=== PATIENT | female | born 1955 | race Caucasian/White ===

== ENCOUNTER 2018-07-31 09:26 | Emergency (ER) | payer MEDICARE, OTHER ==
[~2018-07-31] VITALS: Ht 162.6 cm; Wt 113.6 kg
[~2018-07-31 09:26] MED LIST: ASPI-1 PO; CALC-793 PO; CALCIUM PO; DICL-194 PO; DULO60CA64 PO; GABA800T11 PO; IRON PO; LACT1CAP65 PO; METH-360 PO; OMEP-50 PO; PRAM0.258 PO; PRAV80TA3 PO; TRAM50TA2 PO; WALKERFR
[2018-07-31 09:40] VITALS: BP 143/66
[2018-07-31] MEDS ORDERED: GABA-532 PO (10:18)
== END 2018-07-31 10:45 | disposition home or self-care (01) ==
LOC: ER 09:26
DX: G25.81 Restless legs syndrome (principal); G89.29 Other chronic pain; Z98.890 Other specified postprocedural states; Z98.51 Tubal ligation status; Z88.2 Allergy status to sulfonamides; Z79.899 Other long term (current) drug therapy
CPT/HCPCS: 99283

== ENCOUNTER 2018-11-22 06:54 | Day surgery (SDC) | payer MEDICARE, OTHER ==
[~2018-11-22] VITALS: Ht 162.6 cm; Wt 110.7 kg
[2018-11-22] VITALS (9 sets, daily range): BP systolic 110–159; BP diastolic 27–86
[~2018-11-22 06:54] MED LIST changes: -DULO60CA64 PO; +DULO60CA65 PO; +GABA-532 PO
[2018-11-22] MEDS ORDERED: acetaminophen 325mg tablet PO ONE (07:20)
[2018-11-22] MEDS ORDERED: diphenhydrAMINE 25mg capsule PO ONE (07:20)
[2018-11-22] MEDS ORDERED: dexamethasone sod phosphate 4mg/ml inj. IV ONE (07:20)
[2018-11-22] MEDS ORDERED: ROSU5TAB PO (08:54)
[2018-11-22] MEDS ORDERED: DICL100G15 TOP (09:00)
[2018-11-22] MEDS ORDERED: PRAM0.252 PO (09:00)
[2018-11-22] MEDS ORDERED: METO-395 PO (09:00)
[2018-11-22] MEDS ORDERED: CYAN-51 PO (09:03)
[2018-11-22] MEDS ORDERED: IRON150C5 PO (09:03)
[2018-11-22] MEDS ORDERED: MULT-955 PO (09:03)
== END 2018-11-22 13:20 | disposition home or self-care (01) ==
LOC: SSTAY O 06:54
PROVIDERS: ATTEND Internal Medicine Hematology & Oncology
DX: D50.0 Iron deficiency anemia secondary to blood loss (chronic) (principal); N18.2 Chronic kidney disease, stage 2 (mild); Z79.899 Other long term (current) drug therapy
CPT/HCPCS: 36415; 36430; 86644; 86885; 86900; 86901; 86920; 86945; J1100; P9016; Q0163

== ENCOUNTER 2019-08-23 06:29 | Day surgery (SDC) | payer MEDICARE, OTHER ==
[2019-08-16 15:44] LABS: BASOPHILS % (AUTO) 0.7 % (0-1); EOSINOPHILS # (AUTO) 0.2 X10'3 (0-0.9); EOSINOPHILS % (AUTO) 2.9 % (0-6); LYMPHOCYTES # (AUTO) 1.1 X10'3 (1.1-4.8); MEAN CORPUSCULAR HEMOGLOBIN 25.7 PG (27.0-31.0); MEAN CORPUSCULAR VOLUME 80.4 FL (78-98); MEAN PLATELET VOLUME 8.4 FL (7.4-10.4); MONOCYTES # (AUTO) 0.4 X10'3 (0-0.9); MONOCYTES % (AUTO) 6.6 % (2-12); NEUTROPHILS # (AUTO) 4.5 X10'3 (1.8-7.7); NEUTROPHILS % (AUTO) 72.8 % (42-75); PRE OP HEMATOCRIT 40.3 % (35.0-45.0); PRE OP HEMOGLOBIN 12.9 g/dL (12.0-16.0); PRE OP PLATELET COUNT 196 X10'3 (140-440); RED BLOOD COUNT 5.01 X10'6 (4.20-5.60); RED CELL DISTRIBUTION WIDTH 16.5 % (11.5-14.5)
[2019-08-16 15:45] LABS: CLARITY,URINE CLOUDY (Clear); COLOR,URINE YELLOW (Yellow); GLUCOSE, URINE NEGATIVE (Neg); KETONES,URINE TRACE mg/dl (Neg); LEUKOCYTE ESTERASE ,URINE NEGATIVE (Neg); NITRITES, URINE NEGATIVE (Neg); OCCULT BLOOD,URINE SMALL (Neg); PROTEIN,URINE 100 mg/dl (Neg); UROBILINOGEN,URINE 0.2 E.U/dL (0.2-1.0)
[2019-08-16 15:50] LABS: UA COLLECTION TYPE CLN CATCH MIDSTREAM
[2019-08-16 15:52] LABS: ALBUMIN 3.5 G/DL (3.4-5.0); ALKALINE PHOSPHATASE 86 IU/L (46-116); BLOOD UREA NITROGEN 14 MG/DL (7-18); BUN/CREATININE RATIO 16.9 (6.6-38.0); CALCIUM 9.1 MG/DL (8.5-10.1); CHLORIDE 111 MMOL/L (99-107); CREATININE 0.83 MG/DL (0.40-0.90); PRE OP ANION GAP 10 (8-16); PRE OP AST 79 U/L (10-37); PRE OP BILIRUB, TOTAL 0.3 MG/DL (0.0-1.0); PRE OP GLUCOSE 173 MG/DL (70-104); PRE OP POTASSIUM 3.9 MMOL/L (3.4-5.1); PRE OP SODIUM 145 MMOL/L (135-145); TOTAL CARBON DIOXIDE 24.3 MMOL/L (24-32); eGFR 69 ML/MIN
[2019-08-16 15:54] LABS: AMORPHOUS URATES 3+
[2019-08-16 15:56] LABS: PRE OP ALT 81 U/L (30-65)
[2019-08-16 15:59] LABS: BACTERIA,URINE NONE SEEN /HPF (Neg); RBC,URINE 0-2 /HPF (0-2); SQUAMOUS EPITHELIAL CELL,UR FEW /LPF (FEW); WBC,URINE 0-4 /HPF (0-4)
[~2019-08-23] VITALS: Ht 162.6 cm; Wt 106.6 kg
[2019-08-23] VITALS (12 sets, daily range): BP systolic 115–155; BP diastolic 49–117
[~2019-08-23 06:29] MED LIST changes: -ASPI-1 PO; -CALC-793 PO; -CALCIUM PO; -DICL-194 PO; +DICLOFENAC GEL TOP; -DULO60CA65 PO; -GABA-532 PO; -IRON PO; +MELO-100 PO; -METH-360 PO; +METO-395 PO; +PRAM0.252 PO; -PRAM0.258 PO; -PRAV80TA3 PO; +ROSU5TAB PO; -WALKERFR; +ceFOXitin 2GM-NS 100mL ADDvant 100 ML IV ONE; +ceFOXitin sod/dextrose 2g/50ml 50 ML IV ONE; +famotidine 20mg tablet PO ONE; +ringers solution, lacted 1,000 ML IV SCH
[2019-08-23] MEDS ORDERED: BUPIVAcaine/PF 2.5 mg/ml (0.25%) 30ml vial ONE (07:21)
[2019-08-23] MEDS ORDERED: ceFAZolin 1000mg inj ONE (07:22)
[2019-08-23] MEDS ORDERED: ringers solution, lacted 1,000 ML IV SCH (08:23)
[2019-08-23] MEDS ORDERED: hydrALAZINE 20mg/ml inj. IV PRN (08:25)
[2019-08-23] MEDS ORDERED: morphine 2 MG/ML inj. syringe IV PRN (08:25)
[2019-08-23] MEDS ORDERED: ondansetron/PF 4mg/2ml inj IV PRN (08:25)
[2019-08-23] MEDS ORDERED: labetalol 20mg/4ml (5mg/ml) syringe IV PRN (08:25)
[2019-08-23] MEDS ORDERED: fentaNYL/PF 50MCG/1 ML 2ML syringe IV PRN ×2 (08:25)
[2019-08-23] MEDS ORDERED: sevoflurane 250ml liquid IH ONE (08:30)
[2019-08-23] MEDS ORDERED: fentaNYL/PF 50MCG/1 ML 2ML syringe ONE (08:31)
[2019-08-23] MEDS ORDERED: midazolam 2 mg/2 ml injection ONE (08:31)
[2019-08-23] MEDS ORDERED: rocuronium 10mg/ml inj IV ONE (08:35)
[2019-08-23] MEDS ORDERED: propofol inj 20 ML IV ONE (08:35)
[2019-08-23] MEDS ORDERED: neostigmine methylsulfate 1 MG/ML 10ml vial ONE (08:35)
[2019-08-23] MEDS ORDERED: glycopyrrolate 0.2mg/ml inj ONE (08:35)
[2019-08-23] MEDS ORDERED: dexamethasone sod phosphate 4mg/ml inj. ONE (08:35)
[2019-08-23] MEDS ORDERED: LIDOcaine 2% (20mg/ml) 5ml vial ONE (08:35)
[2019-08-23] MEDS ORDERED: ondansetron/PF 4mg/2ml inj ONE (08:35)
[2019-08-23] MEDS ORDERED: labetalol 20mg/4ml (5mg/ml) syringe IV ONE (09:37)
--- NOTE | 2019-08-23 09:47 | NUR ---
Received from OR via [facility], accompanied by Anesthesiologist DR RODRIGUEZ and report given by Anesthesiologist. PT DROWSY, DENIES PAIN, ABDOMEN W/4 LAP SITES W/BANDAIDS CDI. Addendum: 08/23/19 at 1008 by Kavitha Price RN Amended: Links added.
[2019-08-23] MEDS: morphine 4 MG/ML inj SYRINge IV PRN ×2 (10:21→10:36)
[2019-08-23] MEDS ORDERED: HYDROcodone/acetaminophen 10/325mg tab PO ONE (11:00)
--- NOTE | 2019-08-23 11:57 | NUR ---
PT ABLE TO AMBULATE, PAIN PILL GIVEN FOR [facility] AND PRESCRIPTION TO BE FILLED, D/C INSTRUCTIONS GIVEN AND GONE OVER W/PT WHO VERBALIZED UNDERSTANDING, PT D/CD TO HOME VIA W/C TO PRIVATE VEHICLE W/O INCIDENT. Addendum: 08/23/19 at 1204 by Kavitha Price RN Amended: Links added.
== END 2019-08-23 11:57 | disposition home or self-care (01) ==
LOC: PAS 06:29
PROVIDERS: ATTEND Surgery
DX: K80.10 Calculus of gallbladder with chronic cholecystitis without obstruction (principal); E78.5 Hyperlipidemia, unspecified; D64.9 Anemia, unspecified; G47.30 Sleep apnea, unspecified; G25.81 Restless legs syndrome; E66.9 Obesity, unspecified; Z68.41 Body mass index [BMI] 40.0-44.9, adult; M19.90 Unspecified osteoarthritis, unspecified site; Z88.2 Allergy status to sulfonamides; Z88.8 Allergy status to other drugs, medicaments and biological substances; Z98.890 Other specified postprocedural states; Z79.899 Other long term (current) drug therapy; Z72.89 Other problems related to lifestyle; Z11.59 Encounter for screening for other viral diseases; Z87.891 Personal history of nicotine dependence; Z83.6 Family history of other diseases of the respiratory system
CPT/HCPCS: 36415; 47562; 80053; 81001; 82948; 83036; 85025; J0690; J0694; J1100; J2001; J2250; J2270; J2405; J2704; J2710; J3010; J3490; J7120; U0003; 88304; A4215; A4618; A7000

== ENCOUNTER 2019-11-24 16:06 | Emergency (ER) | payer MEDICARE, OTHER ==
[~2019-11-24] VITALS: Ht 162.6 cm; Wt 106.8 kg
[~2019-11-24 16:06] MED LIST changes: -ceFOXitin 2GM-NS 100mL ADDvant 100 ML IV ONE; -ceFOXitin sod/dextrose 2g/50ml 50 ML IV ONE; -famotidine 20mg tablet PO ONE; -ringers solution, lacted 1,000 ML IV SCH
[2019-11-24 16:08] VITALS: BP 134/64
== END 2019-11-24 17:39 | disposition home or self-care (01) ==
LOC: ER 16:07
DX: M70.22 Olecranon bursitis, left elbow (principal); G89.29 Other chronic pain; Z98.51 Tubal ligation status; Z98.890 Other specified postprocedural states; Z88.5 Allergy status to narcotic agent; Z79.899 Other long term (current) drug therapy
CPT/HCPCS: 99281

== ENCOUNTER 2019-11-27 21:51 | Emergency (ER) | payer MEDICARE, OTHER ==
[~2019-11-27] VITALS: Ht 162.6 cm; Wt 106.4 kg
[2019-11-27] MEDS ORDERED: ondansetron 4mg rapidly disintigrating tab PO ONE (22:40)
--- NOTE | 2019-11-27 22:50 | NUR ---
Patient to xray.
[2019-11-27] MEDS ORDERED: oxymetazoline 15 ML nasal spray NS ONE (22:55)
[2019-11-27] MEDS ORDERED: ONDA4TAB6 PO (23:11)
[2019-11-27 23:20] VITALS: BP 137/62
== END 2019-11-27 23:22 | disposition home or self-care (01) ==
LOC: ER 21:51
DX: R19.7 Diarrhea, unspecified (principal); R11.2 Nausea with vomiting, unspecified; R06.02 Shortness of breath; G89.29 Other chronic pain; Z98.51 Tubal ligation status; Z98.890 Other specified postprocedural states; Z88.2 Allergy status to sulfonamides; Z88.5 Allergy status to narcotic agent; Z79.899 Other long term (current) drug therapy
CPT/HCPCS: 74018; 99283

== ENCOUNTER 2019-12-22 00:07 | Emergency (ER) | payer MEDICARE, OTHER ==
[~2019-12-22] VITALS: Ht 162.6 cm; Wt 103.6 kg
[~2019-12-22 00:07] MED LIST changes: +ONDA4TAB6 PO
[2019-12-22] MEDS ORDERED: ondansetron/PF 4mg/2ml inj IV ONE (00:35)
[2019-12-22] MEDS ORDERED: normal saline 1000ml 1,000 ML IV ONE (00:35)
[2019-12-22 00:50] LABS: BASOPHILS % (AUTO) 0.5 % (0-1); EOSINOPHILS # (AUTO) 0.2 X10'3 (0-0.9); EOSINOPHILS % (AUTO) 3.9 % (0-6); HEMATOCRIT 42.8 % (35.0-45.0); HEMOGLOBIN 14.1 g/dl (12.0-16.0); LYMPHOCYTES # (AUTO) 1.3 X10'3 (1.1-4.8); LYMPHOCYTES % (AUTO) 21.5 % (21-51); MEAN CORPUSCULAR HEMOGLOBIN 26.2 PG (27.0-31.0); MEAN CORPUSCULAR HGB CONC 32.9 g/dL (33.0-36.5); MEAN CORPUSCULAR VOLUME 79.7 FL (78-98); MEAN PLATELET VOLUME 8.4 FL (7.4-10.4); MONOCYTES # (AUTO) 0.3 X10'3 (0-0.9); MONOCYTES % (AUTO) 5.9 % (2-12); NEUTROPHILS % (AUTO) 68.2 % (42-75); PLATELET COUNT 180 X10'3 (140-440); RED BLOOD COUNT 5.36 X10'6 (4.20-5.60); RED CELL DISTRIBUTION WIDTH 17.1 % (11.5-14.5); WHITE BLOOD COUNT 5.8 X10'3 (4.5-11.0)
[2019-12-22 01:03] LABS: ALANINE AMINOTRANSFERASE 58 U/L (12-78); ALBUMIN 4.1 G/DL (3.4-5.0); ALBUMIN/GLOBULIN RATIO 1.1 (1.1-1.5); ALKALINE PHOSPHATASE 85 IU/L (46-116); ANION GAP 6 (8-16); ASPARTATE AMINO TRANSFERASE 44 U/L (10-37); BILIRUBIN,TOTAL 0.5 MG/DL (0.1-1.0); BLOOD UREA NITROGEN 13 MG/DL (7-18); BUN/CREATININE RATIO 17.3 (6.6-38.0); CALCIUM 9.2 MG/DL (8.5-10.1); CHLORIDE 108 MMOL/L (99-107); CREATININE 0.75 MG/DL (0.40-0.90); GLUCOSE 109 MG/DL (70-104); LIPASE 166 U/L (73-393); POTASSIUM 3.5 MMOL/L (3.5-5.1); SODIUM 142 MMOL/L (135-145); TOTAL CARBON DIOXIDE 27.8 MMOL/L (24-32); TOTAL PROTEIN 7.8 G/DL (6.4-8.2); eGFR 77 ML/MIN
[2019-12-22 01:56] LABS: CLARITY,URINE SLIGHTLY CLOUDY (Clear); COLOR,URINE YELLOW (Yellow); GLUCOSE, URINE NEGATIVE (Neg); KETONES,URINE NEGATIVE (Neg); LEUKOCYTE ESTERASE ,URINE NEGATIVE (Neg); NITRITES, URINE NEGATIVE (Neg); OCCULT BLOOD,URINE TRACE-LYSED (Neg); PROTEIN,URINE 30 mg/dl (Neg); UROBILINOGEN,URINE 0.2 E.U/dL (0.2-1.0)
[2019-12-22 02:10] LABS: UA COLLECTION TYPE CLN CATCH MIDSTREAM
[2019-12-22 02:11] LABS: BACTERIA,URINE 2+ /HPF (Neg); RBC,URINE 0-2 /HPF (0-2); SQUAMOUS EPITHELIAL CELL,UR MANY /LPF (FEW); WBC,URINE 0-4 /HPF (0-4)
[2019-12-22 02:34] VITALS: BP 145/95
== END 2019-12-22 02:29 | disposition home or self-care (01) ==
LOC: ER 00:08
DX: R19.7 Diarrhea, unspecified (principal); R11.10 Vomiting, unspecified; R53.1 Weakness; G89.29 Other chronic pain; Z98.51 Tubal ligation status; Z90.49 Acquired absence of other specified parts of digestive tract; Z88.8 Allergy status to other drugs, medicaments and biological substances; Z79.899 Other long term (current) drug therapy
CPT/HCPCS: 36415; 80053; 81001; 83690; 85025; 96361; 96374; 99283; J2405; J7030

== ENCOUNTER 2022-01-05 23:18 | Emergency (ER) | payer MEDICARE, OTHER ==
[~2022-01-05] VITALS: Ht 162.6 cm; Wt 98.2 kg
[~2022-01-05 23:18] MED LIST changes: -OMEP-50 PO; +OMEP20CA16 PO
[2022-01-06 00:24] LABS: BASOPHILS % (AUTO) 0.5 % (0-1); EOSINOPHILS # (AUTO) 0.2 X10'3 (0-0.9); EOSINOPHILS % (AUTO) 2.9 % (0-6); HEMATOCRIT 41.1 % (35.0-45.0); HEMOGLOBIN 13.9 g/dl (12.0-16.0); LYMPHOCYTES # (AUTO) 1.3 X10'3 (1.1-4.8); LYMPHOCYTES % (AUTO) 20.7 % (21-51); MEAN CORPUSCULAR HEMOGLOBIN 27.8 PG (27.0-31.0); MEAN CORPUSCULAR HGB CONC 33.9 g/dL (33.0-36.5); MEAN CORPUSCULAR VOLUME 82.1 FL (78-98); MEAN PLATELET VOLUME 7.6 FL (7.4-10.4); MONOCYTES # (AUTO) 0.4 X10'3 (0-0.9); MONOCYTES % (AUTO) 6.8 % (2-12); NEUTROPHILS # (AUTO) 4.2 X10'3 (1.8-7.7); NEUTROPHILS % (AUTO) 69.1 % (42-75); PLATELET COUNT 220 X10'3 (140-440); RED BLOOD COUNT 5.01 X10'6 (4.20-5.60); RED CELL DISTRIBUTION WIDTH 14.8 % (11.5-14.5); WHITE BLOOD COUNT 6.1 X10'3 (4.5-11.0)
[2022-01-06 00:27] LABS: ALANINE AMINOTRANSFERASE 54 U/L (12-78); ALBUMIN 3.6 G/DL (3.4-5.0); ALKALINE PHOSPHATASE 81 IU/L (46-116); ANION GAP 9 (8-16); ASPARTATE AMINO TRANSFERASE 33 U/L (10-37); BILIRUBIN,TOTAL 0.3 MG/DL (0.1-1.0); BLOOD UREA NITROGEN 14 MG/DL (7-18); BUN/CREATININE RATIO 19.2 (6.6-38.0); CALCIUM 9.3 MG/DL (8.5-10.1); CHLORIDE 106 MMOL/L (99-107); CREATININE 0.73 MG/DL (0.40-0.90); GLUCOSE 119 MG/DL (70-104); POTASSIUM 3.7 MMOL/L (3.5-5.1); SODIUM 141 MMOL/L (135-145); TOTAL CARBON DIOXIDE 26.2 MMOL/L (24-32); TOTAL PROTEIN 7.1 G/DL (6.4-8.2); eGFR 79 ML/MIN
[2022-01-06 04:09] VITALS: BP 142/94
[2022-01-06] MEDS ORDERED: normal saline 1000ML IV soln IVB ONE (04:50)
[2022-01-06 08:46] LABS: OCCULT BLOOD STOOL POSITIVE (Neg)
== END 2022-01-06 06:42 | disposition home or self-care (01) ==
LOC: ER 23:19
DX: R19.7 Diarrhea, unspecified (principal); K50.919 Crohn's disease, unspecified, with unspecified complications; G89.29 Other chronic pain; M54.9 Dorsalgia, unspecified; Z90.49 Acquired absence of other specified parts of digestive tract; Z88.5 Allergy status to narcotic agent; Z79.899 Other long term (current) drug therapy
CPT/HCPCS: 36415; 80053; 82272; 85025; 99283; J7030; 96360

== ENCOUNTER 2022-08-13 19:23 | Emergency (ER) | payer MEDICARE, OTHER ==
[~2022-08-13] VITALS: Ht 162.6 cm; Wt 107.3 kg
[2022-08-13 19:58] LABS: CLARITY,URINE TURBID (Clear); COLOR,URINE YELLOW (Yellow); GLUCOSE, URINE NEGATIVE (Neg); KETONES,URINE NEGATIVE (Neg); LEUKOCYTE ESTERASE ,URINE TRACE (Neg); NITRITES, URINE NEGATIVE (Neg); OCCULT BLOOD,URINE TRACE-INTACT (Neg); PH,URINE 5.5 (4.8-8.0); PROTEIN,URINE 30 mg/dl (Neg); UROBILINOGEN,URINE 0.2 E.U/dL (0.2-1.0)
[2022-08-13] MEDS ORDERED: PANT40TA54 PO (19:59)
[2022-08-13] MEDS ORDERED: MESA0.374 PO (19:59)
[2022-08-13] MEDS ORDERED: PRAM0.5T12 PO (19:59)
[2022-08-13] MEDS ORDERED: ESTR1GEL VG (19:59)
[2022-08-13] MEDS ORDERED: PRAV80TA3 PO (19:59)
[2022-08-13 20:00] LABS: BASOPHILS % (AUTO) 0.6 % (0-1); EOSINOPHILS # (AUTO) 0.3 X10'3 (0-0.9); EOSINOPHILS % (AUTO) 4.3 % (0-6); HEMATOCRIT 42.8 % (35.0-45.0); HEMOGLOBIN 14.3 g/dl (12.0-16.0); LYMPHOCYTES # (AUTO) 1.3 X10'3 (1.1-4.8); LYMPHOCYTES % (AUTO) 18.5 % (21-51); MEAN CORPUSCULAR HEMOGLOBIN 27.5 PG (27.0-31.0); MEAN CORPUSCULAR HGB CONC 33.4 g/dL (33.0-36.5); MEAN CORPUSCULAR VOLUME 82.3 FL (78-98); MEAN PLATELET VOLUME 7.6 FL (7.4-10.4); MONOCYTES # (AUTO) 0.5 X10'3 (0-0.9); MONOCYTES % (AUTO) 6.7 % (2-12); NEUTROPHILS # (AUTO) 4.9 X10'3 (1.8-7.7); NEUTROPHILS % (AUTO) 69.9 % (42-75); PLATELET COUNT 259 X10'3 (140-440); RED BLOOD COUNT 5.19 X10'6 (4.20-5.60); RED CELL DISTRIBUTION WIDTH 15.2 % (11.5-14.5); WHITE BLOOD COUNT 7.1 X10'3 (4.5-11.0)
[2022-08-13 20:05] LABS: SQUAMOUS EPITHELIAL CELL,UR MANY /LPF (FEW); UA COLLECTION TYPE CLN CATCH MIDSTREAM
[2022-08-13 20:07] LABS: WBC,URINE 0-4 /HPF (0-4)
[2022-08-13 20:12] LABS: ALANINE AMINOTRANSFERASE 65 U/L (12-78); ALBUMIN 4.1 G/DL (3.4-5.0); ALBUMIN/GLOBULIN RATIO 1.1 (1.1-1.5); ALKALINE PHOSPHATASE 66 IU/L (46-116); ANION GAP 7 (8-16); ASPARTATE AMINO TRANSFERASE 46 U/L (10-37); BILIRUBIN,TOTAL 0.5 MG/DL (0.1-1.0); BLOOD UREA NITROGEN 10 MG/DL (7-18); BUN/CREATININE RATIO 12.8 (10.0-20.0); CALCIUM 9.7 MG/DL (8.5-10.1); CHLORIDE 107 MMOL/L (99-107); CREATININE 0.78 MG/DL (0.40-0.90); GLUCOSE 107 MG/DL (70-104); LIPASE 120 U/L (73-393); POTASSIUM 3.8 MMOL/L (3.5-5.1); SODIUM 142 MMOL/L (135-145); TOTAL CARBON DIOXIDE 27.9 MMOL/L (24-32); TOTAL PROTEIN 7.7 G/DL (6.4-8.2); eGFR 73 ML/MIN
[2022-08-13 20:19] LABS: RBC,URINE 0-2 /HPF (0-2)
[2022-08-13 20:20] LABS: AMORPHOUS URATES 4+; MUCUS STRANDS MODERATE /LPF (Neg)
[2022-08-13 20:21] LABS: BACTERIA,URINE 1+ /HPF (Neg)
--- NOTE | 2022-08-13 22:26 | NUR ---
PT C/O RESTLESS LEG SYNDROME KICKING IN AND REQUESTING TYLENOL. DR MONGE NOTIFIED, AWAITING ORDERS
[2022-08-13] MEDS ORDERED: dexamethasone sod phosphate 10mg/ml inj IV STA (22:32)
[2022-08-13] MEDS ORDERED: normal saline 1000ML IV soln IVB ONE (22:35)
[2022-08-13 23:41] VITALS: BP 122/78
== END 2022-08-13 23:43 | disposition home or self-care (01) ==
LOC: ER 19:24
DX: R10.32 Left lower quadrant pain (principal); M54.50 Low back pain, unspecified; R19.7 Diarrhea, unspecified; E78.00 Pure hypercholesterolemia, unspecified; I51.9 Heart disease, unspecified; K21.9 Gastro-esophageal reflux disease without esophagitis; G89.29 Other chronic pain; M54.9 Dorsalgia, unspecified; Z98.890 Other specified postprocedural states; Z88.5 Allergy status to narcotic agent; Z79.899 Other long term (current) drug therapy; Z79.1 Long term (current) use of non-steroidal anti-inflammatories (NSAID); Z79.2 Long term (current) use of antibiotics
CPT/HCPCS: 36415; 74176; 80053; 81001; 83690; 85025; 96361; 96374; 99285; J1100; J7030